=== PATIENT | female | born 1995 | race African-American/Black ===

== ENCOUNTER 2021-03-31 09:39 | Emergency (ER) | payer MEDICAID ==
[~2021-03-31] VITALS: Ht 180.3 cm; Wt 180.0 kg
[2021-03-31] MEDS ORDERED: ONDANSETRON 4MG ODT PO ONE (10:15)
[2021-03-31 10:42] LABS: BASOPHILS % 0.4 % (0.0-2.0); EOSINOPHILS % 0.6 % (0.0-5.0); HEMATOCRIT. 31.9 % (36.0-48.0); LYMPHOCYTES % 19.2 % (20.0-50.0); MEAN CORPUSCULAR HEMOGLOBIN 30.6 pg (28.0-32.0); MEAN CORPUSCULAR VOLUME 88.6 fL (81.0-99.0); MEAN PLATELET VOLUME 8.6 fl (7.4-10.4); MONOCYTES % 8.2 % (2.0-8.0); NEUTROPHILS % 71.6 % (40.0-76.0); PLATELET 249 x1000/uL (130-400); RED CELL DISTRIBUTION WIDTH 14.4 % (11.6-14.6)
[2021-03-31 10:46] LABS: CHLORIDE 109 mEq/L (98-107)
[2021-03-31 11:06] LABS: CLARITY URINE CLEAR (CLEAR); COLOR URINE YELLOW (YELLOW); KETONES URINE TRACE (NEGATIVE); LEUKOCYTE ESTERASE URINE 1+ (NEGATIVE); NITRITE URINE NEGATIVE (NEGATIVE); OCCULT BLOOD URINE NEGATIVE (NEGATIVE); PROTEIN URINE NEGATIVE (NEGATIVE); SPECIFIC GRAVITY URINE 1.022 (1.005-1.030)
[2021-03-31] MEDS ORDERED: CEPH500C2 MT (11:46)
[2021-03-31 12:42] VITALS: BP 98/78
== END 2021-03-31 12:44 | disposition home or self-care (01) ==
LOC: ER 10:21
DX: O26.892 Other specified pregnancy related conditions, second trimester (principal); R82.71 Bacteriuria; Z77.098 Contact with and (suspected) exposure to other hazardous, chiefly nonmedicinal, chemicals; R11.0 Nausea; Z3A.21 21 weeks gestation of pregnancy; Z98.890 Other specified postprocedural states; Z88.3 Allergy status to other anti-infective agents
CPT/HCPCS: 36415; 76805; 80048; 81003; 85025; 99284; Q0162

== ENCOUNTER 2021-06-25 13:08 | Observation (INO) | payer MEDICAID ==
[~2021-06-25] VITALS: Ht 180.3 cm; Wt 192.8 kg
[~2021-06-25 13:08] MED LIST: CEPH500C2 MT
[2021-06-25 15:41] LABS: CLARITY URINE CLOUDY (CLEAR); COLOR URINE YELLOW (YELLOW); KETONES URINE NEGATIVE (NEGATIVE); LEUKOCYTE ESTERASE URINE 2+ (NEGATIVE); NITRITE URINE NEGATIVE (NEGATIVE); OCCULT BLOOD URINE NEGATIVE (NEGATIVE); PH URINE 6.5 (4.5-8.0); PROTEIN URINE NEGATIVE (NEGATIVE); SPECIFIC GRAVITY URINE 1.015 (1.005-1.030)
[2021-06-25] MEDS ORDERED: CLINDAMYCIN 900 MG in DEXTROSE 5% WATER 50 ML IV NR (17:45)
[2021-06-25] MEDS ORDERED: LACTATED RINGERS 1,000 ML IV SCH (17:45)
[2021-06-25] MEDS ORDERED: CLINDAMYCIN 900 MG PREMIX 50 ML IV NR (17:45)
== END 2021-06-25 20:20 | disposition home or self-care (01) ==
LOC: 8 EST LDRP 13:08
PROVIDERS: ADMIT Obstetrics & Gynecology; ATTEND Obstetrics & Gynecology
DX: O26.893 Other specified pregnancy related conditions, third trimester (principal); R10.9 Unspecified abdominal pain; Z3A.33 33 weeks gestation of pregnancy
CPT/HCPCS: 59025; 76805; 76818; 81003; 96365; G0378; J3490; 96360; 99281; J7060

== ENCOUNTER 2021-08-11 11:04 | Inpatient (IN) | payer MEDICAID ==
[~2021-08-11] VITALS: Ht 180.3 cm; Wt 192.8 kg
[2021-08-11] MEDS ORDERED: CARBOPROST TROMETHAMINE 250 MCG/ML AMPUL IM PRN (12:30)
[2021-08-11] MEDS ORDERED: NALOXONE HCL 0.4 MG/ML 1ML VIAL IM PRN (12:30)
[2021-08-11] MEDS ORDERED: LIDOCAINE HCL 1% 20ML VIAL (Pyxis) INJ INFIL SCH (12:30)
[2021-08-11] MEDS ORDERED: METHYLERGONOVINE MALEATE 0.2 MG/ML IM PRN (12:30)
[2021-08-11] MEDS ORDERED: BUTORPHANOL TARTRATE 2 MG/ML VIAL IV PRN (12:30)
[2021-08-11] MEDS: LACTATED RINGERS 1,000 ML IV SCH ×3 (13:33→23:47)
[2021-08-11] MEDS: MISOPROSTOL 100MCG TABLET VG SCH ×3 (13:34→21:33)
[2021-08-11 13:43] LABS: CLARITY URINE CLEAR (CLEAR); COLOR URINE YELLOW (YELLOW); KETONES URINE TRACE (NEGATIVE); LEUKOCYTE ESTERASE URINE NEGATIVE (NEGATIVE); NITRITE URINE NEGATIVE (NEGATIVE); OCCULT BLOOD URINE 1+ (NEGATIVE); PROTEIN URINE NEGATIVE (NEGATIVE); SPECIFIC GRAVITY URINE 1.026 (1.005-1.030)
[2021-08-11 13:44] LABS: INR 0.9; PARTIAL THROMBOPLASTIN TIME 29.8 sec (23.4-31.0); PROTHROMBIN TIME 9.8 sec (9.6-11.0)
[2021-08-11 13:55] LABS: *AMPHETAMINES SCREEN URINE NEGATIVE (NEGATIVE); *BARBITURATES SCREEN URINE NEGATIVE (NEGATIVE); *BENZODIAZEPINES SCREEN URINE NEGATIVE (NEGATIVE); *COCAINE SCREEN URINE NEGATIVE (NEGATIVE); METHADONE URINE SCREEN NEGATIVE (NEGATIVE); OPIATES URINE SCREEN NEGATIVE (NEGATIVE)
[2021-08-11 13:56] LABS: CANNABINOID URINE SCREEN NEGATIVE (NEGATIVE); PHENCYCLIDINE URINE SCREEN NEGATIVE (NEGATIVE)
[2021-08-11 14:13] LABS: HEPATITIS B SURFACE ANTIGEN NEGATIVE
[2021-08-11] MEDS ORDERED: LIDOCAINE HCL 2%/EPINEPHRINE 1:100,000 20 ML VIAL INFIL ONE (14:36)
[2021-08-11] MEDS ORDERED: ROPIVACAINE HCL/PF EPIDURAL 200 ML EPI SCH (23:45)
[2021-08-12] MEDS ORDERED: ROPIVACAINE HCL/PF EPIDURAL 200 ML EPI ONE (11:33)
[2021-08-12] MEDS ORDERED: CITRIC ACID/SODIUM CITRATE SOLN 30ML UDC PO NR (13:15)
[2021-08-12] MEDS ORDERED: DEXAMETHASONE 4MG/ML 1ML VIAL ONE (13:28)
[2021-08-12 13:35] VITALS: BP 147/87
[2021-08-12] MEDS ORDERED: KETAMINE HCL 50 MG/ML 10ML ONE (13:40)
[2021-08-12] MEDS ORDERED: MORPHINE SULFATE/PF 1MG/ML 10ML AMP ONE (14:13)
[2021-08-12] MEDS ORDERED: DEXT 5%/LR + PITOCIN 20UNITS/L 1,000 ML IV SCH (14:30)
[2021-08-12] MEDS ORDERED: BISACODYL 10MG SUPP PR PRN (14:30)
[2021-08-12] MEDS ORDERED: RHO(D) IMMUNE GLOBULIN 300 MCG/SYR IM PRN (14:30)
[2021-08-12] MEDS ORDERED: IBUPROFEN 400MG TABLET PO PRN (14:30)
[2021-08-12] MEDS ORDERED: DIPHENHYDRAMINE 25MG CAPSULE PO PRN (14:30)
[2021-08-12] MEDS ORDERED: HYDROMORPHONE HCL/PF 2MG/ML CPJ IM PRN (14:30)
[2021-08-12] MEDS ORDERED: ONDANSETRON HCL 4MG/2ML INJ IM PRN (15:45)
[2021-08-12] MEDS ORDERED: NALOXONE HCL 0.4 MG/ML 1ML VIAL IV PRN (15:45)
[2021-08-12] MEDS: DEXT 5%/LR + PITOCIN 20UNITS/L 1,000 ML IV SCH (17:20)
[2021-08-12 17:40] VITALS: BP 150/79
[2021-08-12 20:00] VITALS: BP 135/87
[2021-08-13] MEDS ORDERED: DIPHENHYDRAMINE 50MG/ML VIAL IM PRN (00:30)
[2021-08-13] MEDS ORDERED: DIPHENHYDRAMINE 25MG CAPSULE PO PRN (01:00)
[2021-08-13] MEDS: DEXT 5%/LR + PITOCIN 20UNITS/L 1,000 ML IV SCH (01:52)
[2021-08-13 02:00] VITALS: BP 133/90
[2021-08-13 04:30] VITALS: BP 120/78
[2021-08-13 07:02] LABS: BASOPHILS % 0.3 % (0.0-2.0); EOSINOPHILS % 0.2 % (0.0-5.0); HEMOGLOBIN. 11.5 g/dL (12.0-16.0); LYMPHOCYTES % 10.7 % (20.0-50.0); MEAN CORPUSCULAR VOLUME 91.7 fL (81.0-99.0); MEAN PLATELET VOLUME 9.2 fl (7.4-10.4); MONOCYTES % 7.5 % (2.0-8.0); NEUTROPHILS % 81.3 % (40.0-76.0); PLATELET 250 x1000/uL (130-400); RED CELL DISTRIBUTION WIDTH 15.1 % (11.6-14.6)
[2021-08-13 08:00] VITALS: BP 122/89
[2021-08-13 12:00] VITALS: BP 114/81
[2021-08-13] MEDS: FERROUS SULFATE 325MG TABLET PO SCH ×3 (12:30→17:30)
[2021-08-13] MEDS: IBUPROFEN 800MG TABLET PO PRN ×2 (15:22→21:48)
[2021-08-13] MEDS: PRENATAL VIT/FE FUMARATE/FA TABLET PO SCH (15:22)
[2021-08-13 16:00] VITALS: BP 124/76
[2021-08-13 20:00] VITALS: BP 112/65
[2021-08-14 04:30] VITALS: BP 127/76
[2021-08-14] MEDS: FERROUS SULFATE 325MG TABLET PO SCH ×3 (07:30→17:30)
[2021-08-14 08:31] VITALS: BP 123/81
[2021-08-14] MEDS: PRENATAL VIT/FE FUMARATE/FA TABLET PO SCH (09:00)
[2021-08-14] MEDS: IBUPROFEN 800MG TABLET PO PRN ×2 (09:27→18:31)
[2021-08-14 16:05] VITALS: BP 130/80
[2021-08-14 20:00] VITALS: BP 125/84
[2021-08-15] MEDS: IBUPROFEN 800MG TABLET PO PRN (00:09)
[2021-08-15 03:20] VITALS: BP 124/78
[2021-08-15 05:58] LABS: BASOPHILS % 0.3 % (0.0-2.0); EOSINOPHILS % 1.9 % (0.0-5.0); HEMATOCRIT. 28.7 % (36.0-48.0); HEMOGLOBIN. 9.6 g/dL (12.0-16.0); LYMPHOCYTES % 14.6 % (20.0-50.0); MEAN CORPUSCULAR HEMOGLOBIN 31.3 pg (28.0-32.0); MEAN CORPUSCULAR VOLUME 93.2 fL (81.0-99.0); MEAN PLATELET VOLUME 9.7 fl (7.4-10.4); MONOCYTES % 5.6 % (2.0-8.0); NEUTROPHILS % 77.6 % (40.0-76.0); PLATELET 237 x1000/uL (130-400); RED BLOOD CELL COUNT 3.08 mill/uL (4.2-5.4); RED CELL DISTRIBUTION WIDTH 15.4 % (11.6-14.6)
[2021-08-15] MEDS: FERROUS SULFATE 325MG TABLET PO SCH (07:30)
[2021-08-15 07:59] VITALS: BP 127/60
[2021-08-15] MEDS: PRENATAL VIT/FE FUMARATE/FA TABLET PO SCH (08:16)
== END 2021-08-15 12:05 | disposition home or self-care (01) | DRG 540 ==
LOC: OBSVTOIN 11:04 → 8 EST LDRP 11:04 → 8EST 08-12 15:37
PROVIDERS: ADMIT Obstetrics & Gynecology; ATTEND Obstetrics & Gynecology
PROC: 10D00Z1 Extraction of Products of Conception, Low, Open Approach (ICD-10-PCS; principal; 2021-08-12)
PROC: 3E0P7GC Introduction of Other Therapeutic Substance into Female Reproductive, Via Natural or Artificial Opening (ICD-10-PCS; 2021-08-12)
DX: O76 Abnormality in fetal heart rate and rhythm complicating labor and delivery (principal); O64.0XX0 Obstructed labor due to incomplete rotation of fetal head, not applicable or unspecified; E66.01 Morbid (severe) obesity due to excess calories; O99.214 Obesity complicating childbirth; Z20.822 Contact with and (suspected) exposure to COVID-19; O62.2 Other uterine inertia; O77.0 Labor and delivery complicated by meconium in amniotic fluid; Z3A.40 40 weeks gestation of pregnancy; Z82.49 Family history of ischemic heart disease and other diseases of the circulatory system; Z88.0 Allergy status to penicillin; Z88.1 Allergy status to other antibiotic agents; Z37.0 Single live birth
CPT/HCPCS: 36415; 76805; 80305; 81003; 85025; 86592; 86703; 86762; 86850; 86900; 87340; 87426; 88307; 99281; J0595; J1100; J1170; J1200; J2274; J2590; J2795; J3490; J7120; A4315

== ENCOUNTER 2021-08-21 23:09 | Emergency (ER) | payer MEDICAID ==
[~2021-08-21] VITALS: Ht 180.3 cm; Wt 202.0 kg
[2021-08-22 00:57] LABS: BASOPHILS % 0.5 % (0.0-2.0); CHLORIDE 111 mEq/L (98-107); EOSINOPHILS % 1.2 % (0.0-5.0); HEMATOCRIT. 32.4 % (36.0-48.0); HEMOGLOBIN. 10.9 g/dL (12.0-16.0); LYMPHOCYTES % 18.2 % (20.0-50.0); MEAN CORPUSCULAR HEMOGLOBIN 30.7 pg (28.0-32.0); MEAN CORPUSCULAR VOLUME 91.5 fL (81.0-99.0); MEAN PLATELET VOLUME 8.2 fl (7.4-10.4); MONOCYTES % 8.1 % (2.0-8.0); PLATELET 353 x1000/uL (130-400); RED BLOOD CELL COUNT 3.54 mill/uL (4.2-5.4); RED CELL DISTRIBUTION WIDTH 14.4 % (11.6-14.6)
[2021-08-22 01:08] LABS: B-HCG QUANTITATIVE 9 mIU/mL (<3)
[2021-08-22 02:40] VITALS: BP 147/92
== END 2021-08-22 02:51 | disposition home or self-care (01) ==
LOC: ER 23:09
DX: O72.1 Other immediate postpartum hemorrhage (principal)
CPT/HCPCS: 36415; 76830; 76856; 80048; 84702; 85025; 86850; 86900; 99284